=== PATIENT | female | born 1935 | race Caucasian/White ===

== ENCOUNTER 2020-11-05 14:21 | Emergency (ER) | payer MEDICARE, BC ==
--- NOTE | 2020-11-05 16:54 | EDM.PDOC ---
ED HPI GENERAL MEDICAL PROBLEM - General Chief Complaint: Respiratory Problem Stated Complaint: SOB Time Seen by Provider: 11/05/20 15:30 Source of Information: Reports: Patient, Family, RN History Limitations: Reports: No Limitations - History of Present Illness INITIAL COMMENTS - FREE TEXT/NARRATIVE: Patient comes in today with complaints of increased difficulty breathing. She was seen in the clinic this last week by her primary care provider who diagnosed her with pneumonia. She was provided cefdinir. She states she is not getting any better. Medication was started 2 days ago. Onset: Sudden Onset Date: 10/31/20 Duration: Getting Worse Location: Reports: Chest Quality: Reports: Burning Severity: Moderate Improves with: Reports: Rest Worsens with: Reports: Other (Activity), Movement Context: Reports: Sick Contact Associated Symptoms: Reports: Shortness of Breath - Related Data Allergies Allergy/AdvReac Type Severity Reaction Status Date / Time latex Allergy Rash Verified 11/05/20 14:55 NUT Allergy Swelling Uncoded 11/05/20 14:55 Home Meds: Home Meds Acetaminophen [Tylenol Extra Strength] 1,000 mg PO BID 08/23/15 [History] Aspirin [Adult Low Dose Aspirin EC] 81 mg PO DAILY 08/23/15 [History] Folic Acid 2 mg PO DAILY 08/23/15 [History] Methotrexate 19.5 mg PO Q7D 08/23/15 [History] Multivitamin with Minerals [Multiple Vitamin] 1 tab PO DAILY 08/23/15 [History] Omeprazole Magnesium [Prilosec] 20 mg PO DAILY 08/23/15 [History] Potassium Chloride 10 meq PO DAILY 08/23/15 [History] Simvastatin [Zocor] 20 mg PO BEDTIME 08/23/15 [History] amLODIPine [Norvasc] 5 mg PO DAILY 08/23/15 [History] atenoloL [Atenolol] 100 mg PO DAILY 08/23/15 [History] Cefuroxime Axetil [Ceftin] 500 mg PO BID 11/05/20 [History] Citalopram [Citalopram HBr] 10 mg PO DAILY 11/05/20 [History] Fluconazole 150 mg PO ASDIRECTED 11/05/20 [History] Latanoprost/Pf [Latanoprost 0.005% Eye Drop] 7.5 ml OP DAILY 11/05/20 [History] Timolol Maleate 10 ml OP DAILY 11/05/20 [History] hydrOXYzine pamoate [Hydroxyzine Pamoate] 25 mg PO ASDIRECTED PRN 11/05/20 [History] Past Medical History HEENT History: Reports: Glaucoma, Macular Degeneration, Other (See Below) 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 muscle soreness - Infectious Disease History Infectious Disease History: Reports: Chicken Pox, Shingles - Past Surgical History HEENT Surgical History: Reports: Adenoidectomy, Tonsillectomy GI Surgical History: Reports: Colonoscopy Social & Family History - Tobacco Use Tobacco Use Status *Q: Current Every Day Tobacco User Years of Tobacco use: 66 Packs/Tins Daily: 0.5 ED ROS GENERAL - Review of Systems Review Of Systems: See Below Constitutional: Reports: Weakness, Fatigue HEENT: Reports: No Symptoms Respiratory: Reports: Shortness of Breath, Wheezing, Cough (Cough is keeping her awake) Cardiovascular: Reports: Dyspnea on Exertion. Denies: Chest Pain Endocrine: Reports: Fatigue GI/Abdominal: Reports: No Symptoms Musculoskeletal: Reports: No Symptoms Skin: Reports: No Symptoms Neurological: Reports: No Symptoms Psychiatric: Reports: No Symptoms Hematologic/Lymphatic: Reports: No Symptoms ED EXAM, GENERAL - Physical Exam Exam: See Below Exam Limited By: No Limitations General Appearance: Alert, Anxious, Moderate Distress Nose: Normal Inspection, Normal Mucosa Throat/Mouth: Normal Inspection, Normal Lips, Normal Teeth, Normal Gums Head: Atraumatic, Normocephalic Neck: Normal Inspection, Supple, Non-Tender, Full Range of Motion Respiratory/Chest: Chest Non-Tender, Decreased Breath Sounds Cardiovascular: Normal Peripheral Pulses, Regular Rate, Rhythm, No Edema, No Gal lop, No JVD, No Murmur, No Rub GI/Abdominal: Normal Bowel Sounds, Soft, Non-Tender, No Organomegaly Extremities: Normal Inspection, Normal Range of Motion, Non-Tender Neurological: Alert, Oriented, CN II-XII Intact, Normal Cognition, Normal Gait, Normal Reflexes, Abnormal Reflexes Psychiatric: Normal Mood Skin Exam: Warm, Dry, Intact, Normal Color, No Rash Lymphatic: No Adenopathy Course - Vital Signs Last Recorded V/S: Last Vital Signs Temp 36.7 C 11/05/20 15:05 Pulse 76 11/05/20 16:41 Resp 18 11/05/20 16:41 BP 161/85 H 11/05/20 16:41 Pulse Ox 91 L 11/05/20 16:41 - Orders/Labs/Meds Orders: Active Orders 24 hr Category Date Time Status Chest 2V [CR] Stat Exams 11/05/20 15:40 Taken Chest x-ray with no pneumonia or effusion noted. Noted chronic lung disease on x-ray. Labs: Laboratory Tests 11/05/20 11/05/20 Range/Units 15:58 15:58 WBC 12.7 H (4.5-11.0) K/uL RBC 4.75 (3.30-5.50) M/uL Hgb 14.6 (12.0-15.0) g/dL Hct 44.0 (36.0-48.0) % MCV 93 (80-98) fL MCH 31 (27-31) pg MCHC 33 (32-36) % Plt Count 411 H (150-400) K/uL Add Manual Diff Yes Neutrophils % (Manual) 73 H (36-66) % Band Neutrophils % 3 L (5-11) % Lymphocytes % (Manual) 13 L (24-44) % Monocytes % (Manual) 11 H (2-6) % Atypical Lymphocytes Few Sodium 135 L (140-148) mmol/L Potassium 3.9 (3.6-5.2) mmol/L Chloride 97 L (100-108) mmol/L Carbon Dioxide 28 (21-32) mmol/L Anion Gap 13.9 (5.0-14.0) mmol/L BUN 18 (7-18) mg/dL Creatinine 0.8 (0.6-1.0) mg/dL Est Cr Clr Drug Dosing 43.11 mL/min Estimated GFR (MDRD) > 60 (>60) Glucose 93 (74-106) mg/dL Calcium 9.8 (8.5-10.1) mg/dL Total Bilirubin 0.4 (0.2-1.0) mg/dL AST 23 (15-37) U/L ALT 23 (12-78) U/L Alkaline Phosphatase 120 H (46-116) U/L Total Protein 7.9 (6.4-8.2) g/dL Albumin 3.7 (3.4-5.0) g/dL Globulin 4.2 H (2.3-3.5) g/dL Albumin/Globulin Ratio 0.9 L (1.2-2.2) Slight elevation in WBCs consider pneumonia not yet present on x-ray. A few atypical lymphocytes noted along with higher neutrophil count and slightly higher platelet count. Departure - Departure Time of Disposition: 18:01 Disposition: Home, Self-Care 01 Condition: Fair Clinical Impression: Pneumonia - Discharge Information *PRESCRIPTION DRUG MONITORING PROGRAM REVIEWED*: Not Applicable *COPY OF PRESCRIPTION DRUG MONITORING REPORT IN PATIENT KASSANDRA: Not Applicable Instructions: Chronic Obstructive Pulmonary Disease Exacerbation, [id number], Shortness of Breath, Adult, [id number] Referrals: Eric Bernal MD [Primary Care Provider] - Forms: ED Department Discharge Additional Instructions: Continue cefdinir until gone. Add azithromycin taking first dose today and continuing for the next 4 days. May use albuterol every 4-6 hours as needed for shortness of breath or wheezing. Follow-up with primary care provider in the next week. Sepsis Event Note (ED) - Evaluation Sepsis Screening Result: No Definite Risk - Focused Exam Vital Signs: Vital Signs Temp Pulse Resp BP Pulse Ox 11/05/20 16:41 76 18 161/85 H 91 L 11/05/20 15:25 68 20 166/85 H 92 L 11/05/20 15:05 36.7 C 78 18 208/100 H 92 L 11/05/20 14:51 36.7 C 78 18 208/100 H 92 L - My Orders Last 24 Hours: My Active Orders 11/05/20 15:40 Chest 2V [CR] Stat - Assessment/Plan Last 24 Hours: My Active Orders 11/05/20 15:40 Chest 2V [CR] Stat Assessment:: Pneumonia versus acute exacerbation of chronic lung disease Plan: Patient on cefdinir. Will add azithromycin and albuterol inhaler. Patient instructed in both.. Patient to follow-up with primary care provider in the next 2 to 3 days.
--- NOTE | 2020-11-06 09:43 | CR ---
CHEST: 2 view CLINICAL HISTORY:Pneumonia COMPARISON:None FINDINGS: The heart size, pulmonary vascularity and hilar structures are normal. There is some ill-definition of the left heart border Lungs are emphysematous. There are atherosclerotic changes in the aorta. IMPRESSION: Minimal patchy density in the lingula may represent a pneumonic infiltrate COPD
== END 2020-11-05 18:01 | disposition home or self-care (01) ==
LOC: JP.ED 14:21
DX: J18.9 Pneumonia, unspecified organism (principal); I10 Essential (primary) hypertension; E78.00 Pure hypercholesterolemia, unspecified; J44.9 Chronic obstructive pulmonary disease, unspecified; Z91.040 Latex allergy status; Z91.018 Allergy to other foods; Z79.82 Long term (current) use of aspirin; Z72.0 Tobacco use; Z79.899 Other long term (current) drug therapy
CPT/HCPCS: 36415; 71046; 71046-26; 80053; 85025; 99285-25

== ENCOUNTER 2022-03-06 15:27 | Observation (INO) | payer MEDICARE, BC ==
[2022-03-06] MEDS ORDERED: niCARdipine HCl 25 MG in Sodium Chloride 0.9% 240 ML IV SCH (16:00)
[2022-03-06] MEDS ORDERED: Sodium Chloride 0.9% 75 ML IV SCH (16:45)
[2022-03-06] MEDS ORDERED: Iopamidol 755 Mg/ML 100 ML Bottle IV SCH (16:45)
[2022-03-06] MEDS ORDERED: Clopidogrel 75 MG Tab PO ONE (18:40)
[2022-03-06] MEDS ORDERED: hydrALAZINE 10 MG Tab PO STA (20:19)
[2022-03-06] MEDS ORDERED: Clopidogrel 75 MG Tab PO SCH (21:15)
[2022-03-06] MEDS ORDERED: Albuterol 0.083% 2.5 MG/3 ML Neb Soln NEB PRN (21:15)
[2022-03-06] MEDS ORDERED: LORazepam 2 MG/ML SDV IV PRN (21:15)
[2022-03-06] MEDS ORDERED: Albuterol/Ipratropium 3.0-0.5 MG/3 ML Neb Soln NEB PRN (21:15)
[2022-03-06] MEDS ORDERED: Sodium Chloride 0.9% 1,000 ML IV SCH (21:15)
[2022-03-06] MEDS ORDERED: Ondansetron 4 MG Tab.DIS PO PRN (21:15)
[2022-03-06] MEDS ORDERED: Docusate Sodium 100 MG Cap PO PRN (21:15)
[2022-03-06] MEDS ORDERED: oxyCODONE 5 MG Tab PO PRN (21:15)
[2022-03-06] MEDS ORDERED: Morphine 2 MG/ML SYRINGE IVPUSH PRN (21:15)
[2022-03-06] MEDS ORDERED: hydrALAZINE 10 MG Tab PO ONE (21:16)
[2022-03-06] MEDS: Acetaminophen 500 MG Tab PO SCH (22:45)
[2022-03-06] MEDS: Pantoprazole 40 MG Tab.CR PO SCH (22:45)
[2022-03-06] MEDS: atorvaSTATin 20 MG Tab PO SCH (22:45)
[2022-03-07] MEDS ORDERED: hydrALAZINE 10 MG Tab PO SCH (04:10)
[2022-03-07] MEDS ORDERED: hydrALAZINE 10 MG Tab PO ONE (05:47)
[2022-03-07] MEDS ORDERED: Atenolol 25 MG Tab PO SCH ×2 (09:00)
[2022-03-07] MEDS ORDERED: Timolol Maleate 0.25% Ophth Soln 5 ML Bottle EYEBOTH SCH (09:00)
[2022-03-07] MEDS ORDERED: Folic Acid 1 MG Tab PO SCH (09:00)
[2022-03-07] MEDS ORDERED: METHOTREXATE 2.5 MG PO SCH (09:00)
[2022-03-07] MEDS ORDERED: Clopidogrel 75 MG Tab PO SCH (09:00)
[2022-03-07] MEDS ORDERED: amLODIPine 5 MG Tab PO SCH (09:00)
[2022-03-07] MEDS: hydrALAZINE 25 MG Tab PO SCH ×2 (10:22→17:22)
[2022-03-07] MEDS: Clopidogrel 75 MG Tab PO SCH (10:24)
[2022-03-07] MEDS: Acetaminophen 500 MG Tab PO SCH ×2 (10:24→22:52)
[2022-03-07] MEDS: CITALOPRAM 10 MG PO SCH (10:28)
[2022-03-07] MEDS: ATENOLOL 50 MG PO SCH (10:29)
[2022-03-07] MEDS: Multivitamins with Iron/Calcium/Folic Acid/Minerals **PTOM PO SCH (10:29)
[2022-03-07] MEDS: Aspirin 81 MG Tab.EC PO SCH (10:30)
[2022-03-07] MEDS: TIMOLOL MALEATE 0.5% EYEBOTH SCH (10:35)
[2022-03-07] MEDS: Potassium Chloride 10 MEQ **PTOM PO SCH (10:38)
[2022-03-07] MEDS ORDERED: Potassium Chloride 20 MEQ Tab.ER PO ONE (11:30)
[2022-03-07] MEDS: BRIMONIDINE 0.2% EYEBOTH SCH ×2 (12:00→22:50)
[2022-03-07] MEDS ORDERED: LATANOPROST 0.005% EYEBOTH SCH ×2 (17:00→21:00)
[2022-03-07] MEDS: atorvaSTATin 20 MG Tab PO SCH (22:53)
[2022-03-07] MEDS: Pantoprazole 40 MG Tab.CR PO SCH (22:53)
[2022-03-08] MEDS: hydrALAZINE 25 MG Tab PO SCH ×2 (02:53→10:25)
[2022-03-08] MEDS ORDERED: Potassium Chloride 20 MEQ Tab.ER PO ONE ×2 (08:15→11:00)
[2022-03-08] MEDS ORDERED: amLODIPine 5 MG Tab (PTOM) PO SCH (09:00)
[2022-03-08] MEDS ORDERED: Folic Acid 1 MG **PTOM PO SCH (09:00)
[2022-03-08] MEDS ORDERED: Clopidogrel 75 MG Tab PO SCH (09:00)
[2022-03-08] MEDS ORDERED: Gadoteridol 279.3 MG/ML 15 ML SDV IV SCH (10:00)
[2022-03-08] MEDS: Potassium Chloride 10 MEQ **PTOM PO SCH (10:13)
[2022-03-08] MEDS: CITALOPRAM 10 MG PO SCH (10:17)
[2022-03-08] MEDS: Aspirin 81 MG Tab.EC PO SCH (10:19)
[2022-03-08] MEDS: Multivitamins with Iron/Calcium/Folic Acid/Minerals **PTOM PO SCH (10:20)
[2022-03-08] MEDS: Clopidogrel 75 MG Tab PO SCH (10:21)
[2022-03-08] MEDS: ATENOLOL 50 MG PO SCH (10:22)
[2022-03-08] MEDS: BRIMONIDINE 0.2% EYEBOTH SCH (10:24)
[2022-03-08] MEDS: TIMOLOL MALEATE 0.5% EYEBOTH SCH (10:24)
[2022-03-08] MEDS: Acetaminophen 500 MG Tab PO SCH (10:25)
== END 2022-03-08 13:50 | disposition home or self-care (01) ==
LOC: JP.ED 15:27 → JP.ICU 19:35
PROVIDERS: ADMIT Internal Medicine; ATTEND Internal Medicine
DX: G45.9 Transient cerebral ischemic attack, unspecified (principal); I10 Essential (primary) hypertension; M06.9 Rheumatoid arthritis, unspecified; E78.00 Pure hypercholesterolemia, unspecified; M81.0 Age-related osteoporosis without current pathological fracture; F41.9 Anxiety disorder, unspecified; F32.89 Other specified depressive episodes; M05.20 Rheumatoid vasculitis with rheumatoid arthritis of unspecified site; J41.0 Simple chronic bronchitis; E78.5 Hyperlipidemia, unspecified; D32.0 Benign neoplasm of cerebral meninges; Z79.899 Other long term (current) drug therapy; Z79.82 Long term (current) use of aspirin; Z91.040 Latex allergy status; Z91.018 Allergy to other foods; Z98.890 Other specified postprocedural states; Z96.649 Presence of unspecified artificial hip joint; Z87.891 Personal history of nicotine dependence; Z20.822 Contact with and (suspected) exposure to COVID-19
CPT/HCPCS: 36415; 70450; 70496; 70498; 70553; 80048; 81001; 82150; 82947; 83690; 83735; 84443; 84484; 85025; 85610; 85730; 93005; 93306; 96365; 96366; 99285; A9270; A9579; J3490; J7030; J7050; J8610; Q9967; U0002; G0378

== ENCOUNTER 2022-03-08 17:27 | Emergency (ER) | payer MEDICARE, BC ==
[2022-03-08 18:19] LABS: ESTIMATED GFR 56 mL/min (>60)
== END 2022-03-08 18:57 | disposition home or self-care (01) ==
LOC: JP.ED 17:27
DX: G45.9 Transient cerebral ischemic attack, unspecified (principal); E78.5 Hyperlipidemia, unspecified; J44.9 Chronic obstructive pulmonary disease, unspecified; E78.00 Pure hypercholesterolemia, unspecified; I10 Essential (primary) hypertension; Z91.040 Latex allergy status; Z91.018 Allergy to other foods; Z79.82 Long term (current) use of aspirin; Z79.899 Other long term (current) drug therapy; Z79.02 Long term (current) use of antithrombotics/antiplatelets; Z87.891 Personal history of nicotine dependence
CPT/HCPCS: 36415; 70450; 80048; 82947; 85025; 93005; 99285